=== PATIENT | female | born 1970 | race Two or more races ===

== ENCOUNTER 2023-11-13 13:21 | Emergency (ER) | payer OTHER ==
[2023-11-13 13:28] VITALS: BP 115/52; PULSE 69; RESP 18; TEMP 97.8; BMI 31.2
[2023-11-13] MEDS ORDERED: IBUPROFEN 600 MG TABLET (FP) PO ONE (14:46)
[2023-11-13] MEDS: IBUPROFEN 600 MG TABLET (FP) PO ONE (14:48)
== END 2023-11-13 15:03 | disposition home or self-care (01) ==
LOC: JERFT 13:21 → JER 13:21 → JERFT 15:03
DX: M79.675 Pain in left toe(s) (principal); W22.8XXA Striking against or struck by other objects, initial encounter
CPT/HCPCS: 99283-25